=== PATIENT | female | born 1930 | race Caucasian/White ===

== ENCOUNTER 2016-08-12 15:24 | Emergency (ER) | payer OTHER, MEDICARE ==
--- NOTE | 2016-08-12 15:43 | EDPHY ---
H & P Stated Complaint: Loss of appitite x 1 week, MCPHERSON Time Seen by Provider: 08/12/16 15:43 - Personal History Current Tetanus/Diphtheria Vaccine: Yes Current Tetanus Diphtheria and Acellular Pertussis (TDAP): Yes - Medical/Surgical History Hx Asthma: No Hx Chronic Respiratory Disease: No Hx Diabetes: No Hx Cardiac Disease: No Hx Renal Disease: No Hx Cirrhosis: No Hx Alcoholism: No Hx HIV/AIDS: No Hx Splenectomy or Spleen Trauma: No Other PMH: L4, L5 injury, asthma - Social History Smoking Status: Never smoked Constitutional: Initial Vital Signs Temperature (C) 37.4 C 08/12/16 15:34 Heart Rate 90 08/12/16 15:34 Respiratory Rate 14 08/12/16 15:34 Blood Pressure 123/86 H 08/12/16 15:34 O2 Sat (%) 95 08/12/16 15:34 O2 Delivery Mode Room Air Allergies/Adverse Reactions: Penicillins Allergy (Intermediate, Verified 08/12/16 16:52) Rash Home Medications: Medication Instructions Recorded Allergy Medicine 08/12/16 Omeprazole 08/12/16 Venlafaxine Xr 08/12/16 Medical Decision Making ED Course/Re-evaluation: CHIEF COMPLAINT: No appetite HISTORY OF PRESENT ILLNESS: The patient is an 86 y/o female arriving with her daughter complaining of anorexic appetite for the last week. She initially had a "blistering" headache last weekend that improved with Advil. Since then, she' s felt generally weak and had no appetite; she's only been able to eat 4 small meals since symptom onset. She denies nausea, vomiting, abdominal pain, dysuria , or diarrhea. Her headache has recurred twice this week, but has been minor in severity. She endorses a mild cough with deep inspiration and feels dehydrated. She was evaluated by her MACHINIST HELPER on Monday, who found nothing significant on exam. She had a chest x-ray on Monday, but has not received those results yet. She denies any recent changes to her medications or lifestyle patterns and as not been ill or injured recently. REVIEW OF SYSTEMS: A 10 point review of systems was performed and is negative with the exception of the elements mentioned in the history of present illness. PHYSICAL EXAM: HR, BP, O2 Sat, RR. Temp noted General Appearance: Alert, well hydrated, appropriate, and non-toxic appearing. Head: Atraumatic without scalp tenderness or obvious injury Eyes: Pupils equal, round, reactive to light and accommodation, EOMI, no trauma , no injection. Ears: Clear bilaterally, no perforation, normal landmarks Nose: Atraumatic, no rhinorrhea, clear. Throat: There is no erythema or exudates, no lesions, normal tonsils, mucus membranes moist. Neck: Supple, 2+ carotid upstroke, nontender, no lymphadenopathy. Respiratory: No retractions, no distress, no wheezes, and no accessory muscle use. Lungs are clear to auscultation bilaterally. Cardiovascular: Regular rate and rhythm, no murmurs, rubs, or gallops. Bilateral carotid, radial, dorsalis pedis, and posterior tibial pulses intact. Good capillary refill all extremities. Gastrointestinal: Abdomen is soft, nontender, non-distended, no masses, no rebound, no guarding, no peritoneal signs. Musculoskeletal: Normal active ROM of all extremities, atraumatic. Neurological: Alert, appropriate, and interactive. The patient has normal DTRs and non-focal cranial nerves, motor, sensory, and cerebellar exam. Skin: No rashes, good turgor, no nodules on palpation. Past medical history: Depression, acid reflux, asthma Past surgical history: denies Family history: noncontributory Social history: , daughter at bedside. Nonsmoker. DIAGNOSTICS/PROCEDURES/CRITICAL CARE TIME: Study: Chest x-ray Indication: Cough, anorexia Results: Chest x-ray was obtained. The results of the study are 1. Mixed airways and interstitial pattern. Query viral pneumonitis. 2. Minimal cardiomegaly. No definite failure. The study was read by the radiologist, Dr. Haines. I viewed the images myself on the PACS system. DIFFERENTIAL DIAGNOSIS: The differential diagnosis for the patient's cough and anorexia included but was not limited to urinary tract infection, pneumonia, myocardial infarction, acute mountain sickness, high altitude pulmonary edema, congestive heart failure, and pulmonary embolus. MEDICAL DECISION MAKING: This is a relatively healthy 86 y/o female presenting with loss of appetite for the last week with associated intermittent headache and minor cough. She cannot identify any obvious precipitating factors for her symptoms. Her exam is unremarkable. She is afebrile and not hypoxemic. Plan for IV, labs, chest x-ray , and UA. Labs and chest x-ray are unremarkable. Her UA indicates a UTI. I've discussed findings with the patient. We discussed her mild non-allergic reaction to penicillins and decided Keflex is the best choice for her UTI. She will be discharged with a script for Keflex and referral to see her PCP in 3-4 days if not improved. She agrees with plan. Return precautions given. - Data Points Laboratory Results: Laboratory Results 08/12/16 16:45 08/12/16 16:45 08/12/16 08/12/16 08/12/16 17:00 16:45 16:45 WBC 8.52 10^3/uL 10^3/uL (3.80-9.50) RBC 4.05 10^6/uL L 10^6/uL (4.18-5.33) Hgb 13.4 g/dL g/dL (12.6-16.3) Hct 39.4 % % (38.0-47.0) MCV 97.3 fL fL (81.5-99.8) MCH 33.1 pg pg (27.9-34.1) MCHC 34.0 g/dL g/dL (32.4-36.7) RDW 12.0 % % (11.5-15.2) Plt Count 304 10^3/uL 10^3/uL (150-400) MPV 9.3 fL fL (8.7-11.7) Neut % (Auto) 70.3 % % (39.3-74.2) Lymph % (Auto) 19.2 % % (15.0-45.0) [place] % (Auto) 8.6 % % (4.5-13.0) Eos % (Auto) 0.9 % % (0.6-7.6) Baso % (Auto) 0.4 % % (0.3-1.7) Nucleat RBC Rel Count 0.0 % % (0.0-0.2) Absolute Neuts (auto) 5.99 10^3/uL 10^3/uL (1.70-6.50) Absolute Lymphs (auto) 1.64 10^3/uL 10^3/uL (1.00-3.00) Absolute Monos (auto) 0.73 10^3/uL 10^3/uL (0.30-0.80) Absolute Eos (auto) 0.08 10^3/uL 10^3/uL (0.03-0.40) Absolute Basos (auto) 0.03 10^3/uL 10^3/uL (0.02-0.10) Absolute Nucleated RBC 0.00 10^3/uL 10^3/uL (0-0.01) Immature Gran % 0.6 % % (0.0-1.1) Immature Gran # 0.05 10^3/uL 10^3/uL (0.00-0.10) Sodium 134 mEq/L mEq/L (134-144) Potassium 4.1 mEq/L mEq/L (3.5-5.2) Chloride 98 mEq/L mEq/L (97-110) Carbon Dioxide 22 mEq/l mEq/l (22-31) Anion Gap 14 mEq/L mEq/L (8-16) BUN 14 mg/dL mg/dL (7-23) Creatinine 1.0 mg/dL mg/dL (0.6-1.0) Estimated GFR 52 Glucose 96 mg/dL mg/dL (70-100) Calcium 9.2 mg/dL mg/dL (8.5-10.4) Total Bilirubin 0.9 mg/dL mg/dL (0.1-1.4) Conjugated Bilirubin 0.6 mg/dL H mg/dL (0.0-0.5) Unconjugated Bilirubin 0.3 mg/dL mg/dL (0.0-1.1) AST 29 IU/L IU/L (14-46) ALT 34 IU/L IU/L (9-52) Alkaline Phosphatase 95 IU/L IU/L (38-126) Total Protein 6.9 g/dL g/dL (6.3-8.2) Albumin 3.6 g/dL g/dL (3.5-5.0) Lipase 124.0 IU/L IU/L (23-300) Urine Color Pending Urine Appearance Pending Urine pH Pending Ur Specific [place] Pending Urine Protein Pending Urine Ketones Pending Urine Blood Pending Urine Nitrate Pending Urine Bilirubin Pending Urine Urobilinogen Pending Ur Leukocyte Esterase Pending Ur Culture Indicated? Pending Urine Glucose Pending Medications Given: Discontinued Medications Sodium Chloride (Ns) 1,000 mls @ 0 mls/hr IV ONCE ONE PRN Reason: Wide Open Stop: 08/12/16 15:57 Last Admin: 08/12/16 16:46 Dose: 1,000 mls Departure - Departure Disposition: Home, Routine, Self-Care Clinical Impression: Anorexia UTI (urinary tract infection) Qualifiers: Urinary tract infection type: site unspecified Hematuria presence: without hematuria Qualified Code(s): N39.0 - Urinary tract infection, site not specified Condition: Good Instructions: Urinary Tract Infection in Women (ED) Additional Instructions: 1. Take Keflex as prescribed. Be sure to complete your entire prescription even if you feel better. 2. Use Tylenol as directed on the packaging if needed for pain or fever. 3. Follow up with your primary care provider for symptoms not improved over the next 3-4 days. 4. Return to the ED for any worsening of condition. Referrals: FILIBERTO MAYES [Other] - As per Instructions Report Scribed for: Michael Mcgee Report Scribed by: Soraida Rob Date of Report: 08/12/16 Time of Report: 15:59
[2016-08-12] MEDS ORDERED: NS 1,000 ML IV ONE (15:56)
[2016-08-12 16:53] LABS: % IMMATURE GRANULYOCYTES 0.6 % (0.0-1.1); ABSOLUTE IMMATURE GRANULOCYTES 0.05 10^3/uL (0.00-0.10); ADD DIFF? NO; ADD MORPH? NO; ADD SCAN? NO; ATYPICAL LYMPHOCYTE FLAG 30 (0-99); FRAGMENT RBC FLAG 0 (0-99); HEMATOCRIT 39.4 % (38.0-47.0); HEMOGLOBIN 13.4 g/dL (12.6-16.3); LEFT SHIFT FLG 0 (0-99); LIPEMIA HEMOLYSIS FLAG 90 (0-99); MEAN CELL HEMOGLOBIN 33.1 pg (27.9-34.1); MEAN CELL VOLUME 97.3 fL (81.5-99.8); MEAN PLATELET VOLUME 9.3 fL (8.7-11.7); PLATELET CLUMPS FLAG 0 (0-99); PLATELET COUNT 304 10^3/uL (150-400); RED BLOOD CELL COUNT 4.05 10^6/uL (4.18-5.33)
[2016-08-12 17:13] LABS: ALANINE AMINOTRANSFERASE 34 IU/L (9-52); ALBUMIN 3.6 g/dL (3.5-5.0); ALKALINE PHOSPHATASE 95 IU/L (38-126); ANION GAP 14 mEq/L (8-16); ASPARTATE AMINOTRANSFERASE 29 IU/L (14-46); BILIRUBIN,TOTAL 0.9 mg/dL (0.1-1.4); BILIRUBIN-CONJUGATED 0.6 mg/dL (0.0-0.5); BILIRUBIN-UNCONJUGATED 0.3 mg/dL (0.0-1.1); CALCIUM 9.2 mg/dL (8.5-10.4); CARBON DIOXIDE 22 mEq/l (22-31); CHLORIDE 98 mEq/L (97-110); GLOMERULAR FILTRATION RATE 52; GLUCOSE 96 mg/dL (70-100); POTASSIUM 4.1 mEq/L (3.5-5.2); SODIUM 134 mEq/L (134-144); TOTAL PROTEIN 6.9 g/dL (6.3-8.2)
[2016-08-12 17:34] LABS: COLOR AMBER; LEUKOCYTE ESTERASE,URINE 2+ (NEGATIVE); NITRITE,URINE NEGATIVE (NEGATIVE)
[2016-08-12 17:41] LABS: BACTERIA TRACE /hpf (NONE SEEN); HYALINE CASTS 25-50 /lpf (0-1); MUCUS 3+ /lpf (NONE-1+); WBC,URINE 50-182 /hpf (0-3)
[2016-08-12 17:42] LABS: RBC,URINE NONE SEEN /hpf (0-3)
[2016-08-12] MEDS ORDERED: CEPHALEXIN 500 MG CAP PO ONE (17:49)
[2016-08-12 18:37] VITALS: BP 132/83; PULSE 86; RESP 17; TEMP 97.9; O2SAT 92
== END 2016-08-12 18:37 | disposition home or self-care (01) ==
DX: R63.0 Anorexia (principal); N39.0 Urinary tract infection, site not specified; J45.909 Unspecified asthma, uncomplicated; B96.89 Other specified bacterial agents as the cause of diseases classified elsewhere

== ENCOUNTER → 2016-12-30 | Outpatient (CLI) | payer OTHER, MEDICARE | LOC: FIMAGING 12:21 | PROVIDERS: ATTEND Internal Medicine | DX: M23.51 Chronic instability of knee, right knee (principal); M23.251 Derangement of posterior horn of lateral meniscus due to old tear or injury, right knee; M22.41 Chondromalacia patellae, right knee; M25.461 Effusion, right knee; M71.21 Synovial cyst of popliteal space [Baker], right knee; M25.561 Pain in right knee; R93.6 Abnormal findings on diagnostic imaging of limbs | CPT/HCPCS: G0202 ==

== ENCOUNTER → 2017-02-15 | Outpatient (CLI) | payer OTHER, MEDICARE | LOC: FIMAGING 13:04 | PROVIDERS: ATTEND Internal Medicine | DX: Z13.820 Encounter for screening for osteoporosis (principal); M85.80 Other specified disorders of bone density and structure, unspecified site; M51.36 Other intervertebral disc degeneration, lumbar region; M46.96 Unspecified inflammatory spondylopathy, lumbar region; Z78.0 Asymptomatic menopausal state ==

== ENCOUNTER 2017-03-20 06:02 | Day surgery (SDC) | payer OTHER, MEDICARE ==
[2017-03-20] MEDS ORDERED: CLINDAMYCIN 900 MG/DEXTROSE 50 ML IV ONE (06:10)
[2017-03-20] MEDS ORDERED: LR 1,000 ML IV ONE (06:12)
[2017-03-20] MEDS ORDERED: LIDOCAINE 1% 2 ML INJ ID PRN (06:12)
[2017-03-20] MEDS ORDERED: CLINDAMYCIN 900 MG/DEXTROSE/50 ML BAG IV ONE (06:24)
--- NOTE | 2017-03-20 06:40 | PDHPUP ---
History & Physical Update H&P update statement: This history and physical update is based on an assessment of the patient which was completed after admission or registration (within 24 hours), but prior to the surgery/procedure.
--- NOTE | 2017-03-20 07:06 | PDANEPAE ---
ANE Past Medical History - Cardiovascular History Hx Hypertension: No Hx Arrhythmias: No Hx Chest Pain: No Hx Coronary Artery / Peripheral Vascular Disease: No Hx CHF / Valvular Disease: No Hx Palpitations: No - Pulmonary History Hx COPD: No Hx Asthma/Reactive Airway Disease: No Hx Recent Upper Respiratory Infection: No Hx Oxygen in Use at Home: No Hx Sleep Apnea: No Sleep Apnea Screening Result - Last Documented: Negative - Neurologic History Hx Cerebrovascular Accident: No Hx Seizures: No Hx Dementia: No - Endocrine History Hx Diabetes: No - Renal History Hx Renal Disorders: No - Liver History Hx Hepatic Disorders: No - Neurological & Psychiatric Hx Hx Neurological and Psychiatric Disorders: No - Cancer History Hx Cancer: No - Congenital Disorder History Hx Congenital Disorders: No - GI History Hx Gastrointestinal Disorders: Yes Gastrointestinal History Comment: GERD,REFLUX - Other Health History Other Health History: NONE - Chronic Pain History Chronic Pain: Yes (GENERAL ARTHITIC JOINTS) - Surgical History Prior Surgeries: 2015 TRIGGER FINGER. 2015 EYELID SURGERY ANE Review of Systems Review of Systems: - Exercise capacity METS (RN): 4 METS ANE Patient History - Allergies Allergies/Adverse Reactions: Penicillins Allergy (Intermediate, Verified 08/12/16 16:52) Rash procaine Allergy (Verified 03/20/17 06:27) NOVACAINE Allergy (Severe, Uncoded 03/10/17 11:11) RACING IRREGULAR HEART BEAT - Home Medications Home Medications: Allergy Medicine 08/12/16 [Last Taken 03/19/17 08:00] Omeprazole 08/12/16 [Last Taken 03/20/17 04:30] Venlafaxine Xr 08/12/16 [Last Taken 03/20/17 04:30] - NPO status NPO Since - Liquids (Date): 03/19/17 NPO Since - Liquids (Time): 19:00 NPO Since - Solids (Date): 03/19/17 NPO Since - Solids (Time): 17:00 - Smoking Hx Smoking Status: Never smoked - Family Anes Hx Family Hx Anesthesia Complications: NONE ANE Labs/Vital Signs - Vital Signs Blood Pressure: 156/85 Heart Rate: 82 Respiratory Rate: 16 O2 Sat (%): 93 Height: 162.56 cm Weight: 72.575 kg ANE Physical Exam - Airway Mallampati Score: Class 2 - ASA Status ASA Status: II ANE Anesthesia Plan Anesthesia Plan: GA w LMA
[2017-03-20] MEDS ORDERED: BUPIVACAINE/EPI 0.5% 30 ML SDV ONE (07:08)
[2017-03-20] MEDS ORDERED: MIDAZOLAM 2 MG/2 ML VIAL ONE (07:10)
[2017-03-20] MEDS ORDERED: fentaNYL 100 MCG/2 ML INJ ONE (07:11)
[2017-03-20] MEDS ORDERED: METOCLOPRAMIDE 10 MG/2 ML VIAL ONE (07:12)
[2017-03-20] MEDS ORDERED: ONDANSETRON 4 MG/2 ML VIAL ONE (07:12)
[2017-03-20] MEDS ORDERED: LIDOCAINE 2% JELLY 5 ML TUBE ONE (07:12)
[2017-03-20] MEDS ORDERED: PROPOFOL 200 MG/20 ML VIAL ONE (07:12)
[2017-03-20] MEDS ORDERED: NALOXONE HCL 0.4 MG/ML INJ IVP PRN (07:59)
[2017-03-20] MEDS ORDERED: PROMETHAZINE HCL 25 MG/ML INJ IVP PRN (07:59)
[2017-03-20] MEDS ORDERED: LR 500 ML IV PRN (07:59)
[2017-03-20] MEDS ORDERED: fentaNYL 100 MCG/2 ML INJ IVP PRN (07:59)
--- NOTE | 2017-03-20 08:00 | POSTANESTH ---
Post Anesthetic Evaluation Cardiovascular Status: Normal, Stable Respiratory Status: Normal, Stable Level of Consciousness/Mental Status: Can Participate in Eval Pain Control: Adequate, Prn Tx Ordered Nausea/Vomiting Control: Adequate, Prn Tx Ordered Complications Possibly Related to Anesthesia: None Noted
[2017-03-20 08:56] VITALS: RESP 16; TEMP 97
[2017-03-20 09:11] VITALS: BP 110/49; PULSE 71; O2SAT 94
== END 2017-03-20 09:14 | disposition short-term general hospital (02) ==
LOC: FSGY 06:02
PROVIDERS: ATTEND Orthopaedic Surgery
PROC: 0SBC4ZZ Excision of Right Knee Joint, Percutaneous Endoscopic Approach (ICD-10-PCS; principal; 2017-03-20 07:15)
PROC: 0MQN4ZZ Repair Right Knee Bursa and Ligament, Percutaneous Endoscopic Approach (ICD-10-PCS; principal; 2017-03-20 07:15)
DX: S83.281A Other tear of lateral meniscus, current injury, right knee, initial encounter (principal); W18.43XA Slipping, tripping and stumbling without falling due to stepping from one level to another, initial encounter; J45.909 Unspecified asthma, uncomplicated; F32.9 Major depressive disorder, single episode, unspecified; M85.80 Other specified disorders of bone density and structure, unspecified site; Z80.3 Family history of malignant neoplasm of breast
CPT/HCPCS: J0171; J2250; J2405; J2704; J2765; J3010

== ENCOUNTER → 2017-06-05 | Outpatient (CLI) | payer OTHER, MEDICARE | LOC: BMCIMAGING 10:19 | PROVIDERS: ATTEND Internal Medicine | DX: J40 Bronchitis, not specified as acute or chronic (principal); I51.7 Cardiomegaly; Q25.46 Tortuous aortic arch ==

== ENCOUNTER 2017-06-07 16:23 | Inpatient (IN) | payer OTHER, MEDICARE ==
--- NOTE | 2017-06-07 16:39 | EDPHY ---
H & P Stated Complaint: congestion Time Seen by Provider: 06/07/17 16:38 HPI/ROS: CHIEF COMPLAINT: Chronic congestion cough weakness HISTORY OF PRESENT ILLNESS: The patient has had a 1 month history of a chronic intermittent cough, congestion and weakness. She reports subjective fevers, weight loss nausea and malaise. The patient was initially diagnosed with a possible urinary tract infection and treated with Keflex however the culture demonstrated only a contaminant. She was subsequently started on doxycycline 2 weeks ago. The patient did have a chest x-ray performed 2 days ago which demonstrated no evidence of pneumonia. She did have evidence of bronchitis. The patient had a negative flu test by her report several weeks ago. The patient denies any abdominal pain, vomiting or diarrhea. The patient complains of mild dyspnea and intractable cough. She has not been using an albuterol inhaler. REVIEW OF SYSTEMS: A comprehensive 10 point review of systems is otherwise negative aside from elements mentioned in the history of present illness. Source: Patient Exam Limitations: No limitations - Personal History Current Tetanus/Diphtheria Vaccine: Unsure Current Tetanus Diphtheria and Acellular Pertussis (TDAP): Unsure - Medical/Surgical History Hx Asthma: Yes Hx Chronic Respiratory Disease: No Hx Diabetes: No Hx Cardiac Disease: No Hx Renal Disease: No Hx Cirrhosis: No Hx Alcoholism: No Hx HIV/AIDS: No Hx Splenectomy or Spleen Trauma: No Other PMH: L4, L5 injury, asthma, R knee surgery, tonsilectomy, tubal ligation - Social History Smoking Status: Never smoked - Physical Exam Exam: General Appearance: Alert, no distress Eyes: Pupils equal and round no pallor or injection ENT, Mouth: Mucous membranes moist Respiratory: Rhonchorous breath sounds, no tachypnea Cardiovascular: Regular rate and rhythm Gastrointestinal: Abdomen is soft and nontender, no masses, bowel sounds normal Neurological: A&O, normal motor function, normal sensory exam, normal cranial nerves Skin: Warm and dry, no rashes Musculoskeletal: Neck is supple nontender Extremities: symmetrical, full range of motion Constitutional: Initial Vital Signs Temperature (C) 36.7 C 06/07/17 16:29 Heart Rate 106 H 06/07/17 16:29 Respiratory Rate 16 06/07/17 16:29 Blood Pressure 134/79 H 06/07/17 16:29 O2 Sat (%) 86 L 06/07/17 16:29 O2 Delivery Mode Room Air Allergies/Adverse Reactions: Penicillins Allergy (Intermediate, Verified 06/07/17 16:28) Rash procaine Allergy (Verified 06/07/17 16:28) NOVACAINE Allergy (Severe, Uncoded 06/07/17 16:28) RACING IRREGULAR HEART BEAT Home Medications: Medication Instructions Recorded Allergy Medicine 08/12/16 Omeprazole 08/12/16 Venlafaxine Xr 08/12/16 Albuterol [Ventolin Hfa Inhaler] 2 puffs IH QID PRN #1 mdi 06/07/17 Doxycycline Monohydrate 06/07/17 Mucinex 06/07/17 predniSONE [prednisone 20mg (RX)] 3 tab PO DAILY #15 tab 06/07/17 Medical Decision Making ED Course/Re-evaluation: The patient presents to the ED with an ongoing respiratory illness. She is currently on doxycycline. She had a chest x-ray performed 2 days ago which demonstrated no evidence of pneumonia. She has had a negative rapid flu test by her report. The patient was noted to be hypoxemic in the emergency department. She received prednisone, a DuoNeb and albuterol nebulizer. Her laboratory studies are reassuring. A respiratory pathogen panel has been ordered. I re-evaluated the patient at 6:30 p.m.. She ambulated and has an oxygen saturation of 80%. She corrects with 2 L/min of nasal cannula oxygen. The patient will require admission to the hospital in a setting of her hypoxemia. Consultation is made with Dr. Maravilla from the hospitalist service. I have ordered respiratory pathogen panel. The patient received an additional albuterol nebulizer. Differential Diagnosis: Differential diagnosis considered includes asthma, bronchitis, pneumonia, influenza, heart failure - Data Points Laboratory Results: Laboratory Results 06/07/17 17:05 06/07/17 17:05 06/07/17 06/07/17 17:05 17:05 WBC 10.84 10^3/uL H 10^3/uL (3.80-9.50) RBC 4.34 10^6/uL 10^6/uL (4.18-5.33) Hgb 14.0 g/dL g/dL (12.6-16.3) Hct 40.6 % % (38.0-47.0) MCV 93.5 fL fL (81.5-99.8) MCH 32.3 pg pg (27.9-34.1) MCHC 34.5 g/dL g/dL (32.4-36.7) RDW 12.6 % % (11.5-15.2) Plt Count 302 10^3/uL 10^3/uL (150-400) MPV 9.3 fL fL (8.7-11.7) Neut % (Auto) 79.8 % H % (39.3-74.2) Lymph % (Auto) 11.1 % L % (15.0-45.0) [place] % (Auto) 7.7 % % (4.5-13.0) Eos % (Auto) 0.4 % L % (0.6-7.6) Baso % (Auto) 0.4 % % (0.3-1.7) Nucleat RBC Rel Count 0.0 % % (0.0-0.2) Absolute Neuts (auto) 8.65 10^3/uL H 10^3/uL (1.70-6.50) Absolute Lymphs (auto) 1.20 10^3/uL 10^3/uL (1.00-3.00) Absolute Monos (auto) 0.84 10^3/uL H 10^3/uL (0.30-0.80) Absolute Eos (auto) 0.04 10^3/uL 10^3/uL (0.03-0.40) Absolute Basos (auto) 0.04 10^3/uL 10^3/uL (0.02-0.10) Absolute Nucleated RBC 0.00 10^3/uL 10^3/uL (0-0.01) Immature Gran % 0.6 % % (0.0-1.1) Immature Gran # 0.07 10^3/uL 10^3/uL (0.00-0.10) Sodium 132 mEq/L L mEq/L (135-145) Potassium 4.3 mEq/L mEq/L (3.5-5.2) Chloride 95 mEq/L L mEq/L (97-110) Carbon Dioxide 23 mEq/l mEq/l (22-31) Anion Gap 14 mEq/L mEq/L (8-16) BUN 15 mg/dL mg/dL (7-23) Creatinine 0.9 mg/dL mg/dL (0.6-1.0) Estimated GFR 59 Glucose 110 mg/dL H mg/dL (70-100) Calcium 9.1 mg/dL mg/dL (8.5-10.4) Specimen Hemolysis 114 Medications Given: Discontinued Medications Albuterol/Ipratropium (Duoneb) 3 ml IH EDNOW ONE Stop: 06/07/17 17:06 Last Admin: 06/07/17 17:16 Dose: 3 ml Prednisone (Prednisone) 60 mg PO EDNOW ONE Stop: 06/07/17 17:56 Last Admin: 06/07/17 18:03 Dose: 60 mg Departure - Departure Disposition: [facility] Inpatient Acute Clinical Impression: Bronchitis, Hypoxemia Condition: Good
[2017-06-07] MEDS ORDERED: IPRATROPIUM/ALBUTEROL 3 ML DEYVIAL IH ONE (17:05)
[2017-06-07 17:21] LABS: PLATELET COUNT 302 10^3/uL (150-400)
[2017-06-07] MEDS ORDERED: predniSONE 20 MG TAB PO ONE (17:55)
[2017-06-07] MEDS ORDERED: ONDANSETRON DISINTEGRATING 4 MG TAB PO PRN (18:44)
[2017-06-07] MEDS ORDERED: ONDANSETRON 4 MG/2 ML VIAL IVP PRN (18:44)
[2017-06-07] MEDS ORDERED: ACETAMINOPHEN 325 MG TAB PO PRN (18:44)
[2017-06-07] MEDS ORDERED: ALBUTEROL 3 ML DEYVIAL IH ONE (18:47)
[2017-06-07] MEDS ORDERED: IPRATROPIUM/ALBUTEROL 3 ML DEYVIAL IH PRN (20:25)
[2017-06-07] MEDS ORDERED: BENZONATATE 100 MG CAP PO PRN (20:25)
[2017-06-07] MEDS ORDERED: guaiFENesin 200 MG TAB PO PRN (20:26)
[2017-06-07] MEDS ORDERED: LR 1,000 ML IV SCH (20:30)
--- NOTE | 2017-06-07 21:12 | GHP ---
[f rep st] HISTORY AND PHYSICAL DATE OF ADMISSION: 06/07/2017 CHIEF COMPLAINT: Chronic cough, weakness. HISTORY OF PRESENT ILLNESS: An 87-year-old female with history of GERD, depression, who presented wi th weakness. She reports an intermittent cough and congestion for the past month. She initially not iced symptoms a month ago after returning from [place] visiting her son. She developed a headache an d a temperature of a 101 on May 11. She was very fatigued and had a decreased appetite. She contreras d intermittent diarrhea at that time. She saw her PCP, was provided Keflex for possible UTI. Cultur e on 05/17/2017 was negative. She was still having persistent symptoms, which were dry cough and madisyn e nasal congestion and thus was dosed with a 2nd round of antibiotics of doxycycline. She had a ches t x-ray 06/05/2017 that was negative for effusion or pneumonia. It did show some bronchitis. She re ports a negative flu several weeks ago. No ill contacts. She says she cannot take deep breaths mariana use it is hard to breathe. This is worsened with walking. Denies PND, pillow orthopnea, or lower ex tremity swelling. She did have a meniscal tear repair in December, but was walking the next day, not immobile. REVIEW OF SYSTEMS: I completed a 10-point review of systems, negative except as noted in HPI. PAST MEDICAL HISTORY: GERD, depression. SURGERIES: 1. Meniscectomy, chondroplasty in December 2016. 2. Trigger finger surgery. SOCIAL HISTORY: Lives at [place]. No tobacco or illicits. Occasional alcohol. FAMILY HISTORY: A sister with breast cancer. Brother with bladder cancer. Daughter with small cell carcinoma. ALLERGIES: Penicillin, procaine, novocaine. HOME MEDICATIONS: Vitamin B12, multivitamin, vitamin D3, Effexor 75 mg twice daily, omeprazole 40 mg daily, guaifenesin, doxycycline 100 mg twice daily, Zyrtec. PHYSICAL EXAMINATION: VITAL SIGNS: Temperature 36.8, blood pressure 132/82. She is 86% on room air , 90 on 3 L. GENERAL: Tired-appearing. HEENT: PERRLA. Dry mucous membranes. CARDIOVASCULAR: Ta woo but regular. No murmurs. Trace ankle edema. LUNGS: Diffuse crackles throughout lung gerber bi laterally. ABDOMEN: Soft, nontender, nondistended. Positive bowel sounds. : No Pang. MUSCULO SKELETAL: 5/5 upper lower extremity strength. NEURO: 2 through 12 intact. PSYCH: Alert and orien noemi x3. LABS: WBC 10, hemoglobin 14, hematocrit 40, platelets 302. Sodium 132, potassium 4.3, chloride 95, anion gap 14, creatinine 0.9, glucose 110, calcium 9.1. Chest x-ray personally reviewed by me on 12/2017, no evidence of pneumonia or effusion. ASSESSMENT AND PLAN: 1. Acute hypoxic respiratory failure: The patient has been treated with 2 rounds of antibiotics. S he is currently afebrile. There is no evidence of pneumonia on x-ray. She does not have any underly ing lung disease or history of tobacco. We will rule out other etiologies by checking a troponin, BN P. Check a CT scan given persistence. 2. Hypovolemic hyponatremia: Gentle IV fluids. She is dry on exam. 3. Tachycardia: Again, could be dehydration versus pulmonary embolus, though the suspicion is low. I will check a D-dimer, if positive we will CT scan. 4. Gastroesophageal reflux disease: Continue PPI. 5. Depression: Effexor. DIET: Regular. DEEP VENOUS THROMBOSIS PROPHYLAXIS: Lovenox. DISPOSITION: Patient warrants observation admission given fatigue, hypoxia requiring IV fluids and f urther imaging. /[id number]/MODL
[2017-06-07] MEDS ORDERED: CETIRIZINE 10 MG TAB PO PRN (21:57)
[2017-06-08] MEDS: CYANO/VITAMIN B12 1000 MCG TAB PO SCH (08:00)
[2017-06-08] MEDS: PANTOPRAZOLE SODIUM 40 MG TAB PO SCH (08:01)
[2017-06-08] MEDS: MULTIVITAMINS 1 EACH TAB PO SCH (08:01)
[2017-06-08] MEDS: ENOXAPARIN 40 MG/0.4 ML SYR SC SCH (08:01)
[2017-06-08] MEDS: CHOLECALCIFEROL VIT D3 2,000 UNITS TAB/CAP PO SCH (08:01)
[2017-06-08] MEDS: VENLAFAXINE XR 75 MG CAP PO SCH ×2 (08:01→20:47)
--- NOTE | 2017-06-08 11:37 | HOSPPROG ---
Hospitalist Progress Note Assessment/Plan: Patient is an 87-year-old female with a history of GERD, depression who presented the emergency room with a chronic cough and weakness. Today is my 1st encounter with the patient. Chart reviewed. 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 Objective: Vital Signs Temp Pulse Resp BP Pulse Ox 36.6 C 78 16 122/61 H 92 06/08/17 08:00 06/08/17 08:00 06/08/17 08:00 06/08/17 08:00 06/08/17 08:00 - Physical Exam Constitutional: no apparent distress, appears nourished, not in pain Eyes: PERRL Ears, Nose, Mouth, Throat: hearing normal Cardiovascular: regular rate and rhythym Respiratory: no respiratory distress, clear to auscultation Gastrointestinal: normoactive bowel sounds Skin: warm Musculoskeletal: full muscle strength Neurologic: AAOx3 Psychiatric: interacting appropriately ICD10 Worksheet Patient Problems: Problems Problem Status Onset Bronchitis Acute Hypoxemia Acute
--- NOTE | 2017-06-08 12:22 | CPEKG ---
Heart Rate: 94 RR Interval: 638 P-R Interval: 168 QRSD Interval: 86 QT Interval: 348 QTC Interval: 436 P Nelson: 47 QRS Nelson: -36 T Wave Nelson: 32 EKG Severity - OTHERWISE NORMAL ECG - EKG Impression: SINUS RHYTHM EKG Impression: LEFT AXIS DEVIATION Electronically Signed By: Anand Kerns 08-Jun-2017 15:22:52
[2017-06-08] MEDS: predniSONE 20 MG TAB PO SCH (12:29)
--- NOTE | 2017-06-08 15:25 | ASMTCMCOM ---
CM Note CM Note Notes: Per RN, pt lives at [place] and takes care of . Refused to work with PT today, CM w/f up tomorrow for dc needs. Date Signed: 06/08/2017 03:25 PM Electronically Signed By:Jenifer Kruse RN
--- NOTE | 2017-06-08 16:09 | PDMN ---
Medical Necessity Medical necessity: IP from time of admission; no obs hrs; los>2mn for acute hypoxemic resp failure with O2 sat 85 on RA, elevated D dimer; requires further monitoring , supplemental O2; comorbid GERD, depression, advanced age; per order and progress note 06/08/17
[2017-06-09 04:28] VITALS: RESP 16
[2017-06-09] MEDS: ENOXAPARIN 40 MG/0.4 ML SYR SC SCH (08:29)
[2017-06-09] MEDS: VENLAFAXINE XR 75 MG CAP PO SCH (08:30)
[2017-06-09] MEDS: MULTIVITAMINS 1 EACH TAB PO SCH (08:30)
[2017-06-09] MEDS: CYANO/VITAMIN B12 1000 MCG TAB PO SCH (08:30)
[2017-06-09] MEDS: PANTOPRAZOLE SODIUM 40 MG TAB PO SCH (08:30)
[2017-06-09] MEDS: CHOLECALCIFEROL VIT D3 2,000 UNITS TAB/CAP PO SCH (08:30)
[2017-06-09] MEDS: predniSONE 20 MG TAB PO SCH (08:30)
[2017-06-09 11:41] VITALS: BP 130/61; PULSE 84; TEMP 98; O2SAT 91
--- NOTE | 2017-06-09 12:00 | HOSPPROG ---
Hospitalist Progress Note Assessment/Plan: Patient is an 87-year-old female with a history of GERD, depression who presented the emergency room with a chronic cough and weakness. 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 Objective: Vital Signs Temp Pulse Resp BP Pulse Ox 36.6 C 84 16 130/61 H 91 L 06/09/17 11:36 06/09/17 11:36 06/09/17 11:36 06/09/17 11:36 06/09/17 11:36 Laboratory Results 06/09/17 05:00 - Physical Exam Constitutional: no apparent distress, appears nourished, not in pain Eyes: PERRL Ears, Nose, Mouth, Throat: hearing normal Cardiovascular: regular rate and rhythym Respiratory: no respiratory distress, no rales or rhonchi, clear to auscultation Gastrointestinal: normoactive bowel sounds Skin: warm, normal color Musculoskeletal: generalized weakness Neurologic: AAOx3 Psychiatric: interacting appropriately ICD10 Worksheet Patient Problems: Problems Problem Status Onset Bronchitis Acute Hypoxemia Acute
--- NOTE | 2017-06-09 17:38 | ASDISCHSUM ---
Discharge Information Plan Status:Home with No Needs Medically Cleared to Leave: Discharge Date:06/09/2017 02:35 PM CM D/C Disposition: ADT D/C Disposition:Home, Routine, Self-Care Projected Discharge Date:06/09/2017 02:35 PM Transportation at D/C: Discharge Delay Reason: Follow-Up Date:06/09/2017 02:35 PM Discharge Slot: Final Diagnosis: Placement Information Patient Contact Information Contact Name:JL Relationship:Daughter Address: Work Phone: City:[place] Alternate Phone: State/[place] Code:[place] Email: Financial Information Financial Class: Primary Plan Desc:MEDICARE INPATIENT Primary Plan Number:[id number] Secondary Plan Desc:[employer]ARP/MDR SUPPLEMENT Secondary Plan Number:[id number] Assessment Information [facility] CM Progress Note CM Note CM Note Notes: Per RN, pt lives at [place] and takes care of . Refused to work with PT today, CM w/f up tomorrow for dc needs. Date Signed: 06/08/2017 03:25 PM Electronically Signed By:Jenifer Kruse RN Case Management Discharge Plan Note Case Management Discharge Discharge Order Complete? Answers: No Transportation Arranged Answers: Family/Friends Discharge Comments Notes: Spoke w/pt, declines the need for home care, states lives at [place] and there is assistance if she needs it, as well RNs who take care of her . CM available for any changes. DC Plan: Home independent Date Signed: 06/09/2017 12:57 PM Electronically Signed By:Jenifer Kruse RN Intervention Information Intervention Type:*GAINES-Signed Date of Service:06/08/2017 02:13 PM Patient Type:Observation Staff Member:Bee Carranza Hours: Discipline: Severity: Comment:
--- NOTE | 2017-06-09 18:14 | GDS ---
[f rep st] DISCHARGE SUMMARY DISCHARGE DIAGNOSES: 1. Acute hypoxemic respiratory failure. 2. Cough. 3. 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 4. Elevated D-dimer. 5. Gastroesophageal reflux disease. 6. Depression. BRIEF HISTORY: The patient is an 87-year-old female with history of GERD, depression, who presented to the emergency room with a chronic cough and weakness. She had a respiratory panel performed that showed no organism detected. Blood cultures were checked, which were negative. She had a CT of her chest performed, which showed chronic bronchitis. Negative for acute pneumonia. She has some element of mild interstitial fibrosis. 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 She was started on prednisone with good results. Today, her cough is much better and she is on room air. HOSPITAL COURSE PER PROBLEM: 1. Acute hypoxemic respiratory failure. I suspect this is mainly from bronchitis. She has improved with steroids. I have given her the name of a narcotics detective to follow up with. 2. Cough. She said this has been ongoing. The prednisone has helped. She will get a prescription for Tessalon Perles. 3. 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 Will have her follow up with her primary care doctor. 4. Elevated D-dimer. She had a CT of the chest, but not an angiogram. She is not tachycardic and not hypoxic. Her PE clinical probability is likely low. At this time, will not pursue any further imaging. 5. GERD. PPI. 6. Depression, stable on her medications. DISCHARGE CONDITION: Stable. Blood pressure is 130/61, heart rate is 84, respiratory rate is 16, O2 saturations on room air are 91%, temperature 36.6 Celsius. MEDICATIONS AT DISCHARGE: Please see the EMR. DISCHARGE INSTRUCTIONS: 1. Further followup with her primary care provider. 2. Take the prednisone as instructed. 3. If she develops fever, chills, shortness of breath, to return to the ER. 4. Follow up with Pulmonology. TIME SPENT: Greater than 30 minutes discharging and coordinating care. /[id number]/MODL MTDD
== END 2017-06-09 14:35 | disposition home or self-care (01) | DRG 202 ==
LOC: INTOOBSV 18:29 → F3E 19:48 → OBSVTOIN 06-08 15:12
PROVIDERS: ADMIT Internal Medicine; ATTEND Internal Medicine
DX: J40 Bronchitis, not specified as acute or chronic (principal); J96.01 Acute respiratory failure with hypoxia; E87.1 Hypo-osmolality and hyponatremia; J84.10 Pulmonary fibrosis, unspecified; K21.9 Gastro-esophageal reflux disease without esophagitis
CPT/HCPCS: 97161-GP; G8978-GP-CI; G8979-GP-CI; G8980-GP-CI; J1650; J7512; J7613

== ENCOUNTER → 2017-09-21 | Outpatient (CLI) | payer OTHER, MEDICARE | LOC: BHFA 10:00 | PROVIDERS: ATTEND Internal Medicine Cardiovascular Disease | DX: R06.00 Dyspnea, unspecified (principal) ==

== ENCOUNTER → 2017-09-21 | Outpatient (CLI) | payer OTHER, MEDICARE | LOC: FIMAGING 11:26 | PROVIDERS: ATTEND Internal Medicine | DX: R05 Cough (principal); R06.2 Wheezing; R09.81 Nasal congestion ==

== ENCOUNTER → 2017-10-06 | Outpatient (CLI) | payer OTHER, MEDICARE | LOC: BHFA 14:00 | PROVIDERS: ATTEND Internal Medicine Cardiovascular Disease | DX: R06.02 Shortness of breath (principal) ==

== ENCOUNTER 2017-10-18 14:59 | Inpatient (IN) | payer OTHER, MEDICARE ==
[2017-10-18] MEDS ORDERED: NS 500 ML IV ONE (15:30)
--- NOTE | 2017-10-18 15:30 | EDPHY ---
H & P Stated Complaint: cough/fever Time Seen by Provider: 10/18/17 15:00 HPI/ROS: CHIEF COMPLAINT: Cough, fever HISTORY OF PRESENT ILLNESS: 87-year-old female presents with cough and fever. Onset of sore throat, runny nose and cough 4 days ago. The cough is productive of yellowish phlegm and is associated with shortness of breath. Onset of fever yesterday; no antipyretics today. She feels dizzy and has generalized weakness. She only drank a small amount of water today and did not take her usual medications. She has home oxygen and uses it only as needed. She has not used her oxygen recently. REVIEW OF SYSTEMS: complete 10 point ROS negative except at noted in the HPI Exam Limitations: No limitations - Personal History Current Tetanus/Diphtheria Vaccine: Unsure - Medical/Surgical History Hx Asthma: Yes Hx Chronic Respiratory Disease: No Hx Diabetes: No Hx Cardiac Disease: No Hx Renal Disease: No Hx Cirrhosis: No Hx Alcoholism: No Hx HIV/AIDS: No Hx Splenectomy or Spleen Trauma: No Other PMH: L4, L5 injury, asthma, R knee surgery, tonsilectomy, tubal ligation - Social History Smoking Status: Never smoked - Physical Exam Exam: General Appearance: Alert, pleasant, nontoxic Eyes: Pupils equal and round, no conjunctival pallor or injection ENT, Mouth: Mucous membranes dry Neck: Normal inspection Respiratory: Scattered inspiratory and expiratory wheezing Cardiovascular: Regular tachycardia Gastrointestinal: Abdomen is soft and nontender Neurological: A&O, nonfocal, normal gait Skin: Warm and dry Extremities: Nontender, no pedal edema Psychiatric: Mood and affect normal Constitutional: Initial Vital Signs Temperature (C) 37.5 C 10/18/17 15:03 Heart Rate 112 H 10/18/17 15:03 Respiratory Rate 20 10/18/17 15:03 Blood Pressure 135/81 H 10/18/17 15:03 O2 Sat (%) 90 L 10/18/17 15:03 O2 Delivery Mode Room Air Allergies/Adverse Reactions: Penicillins Allergy (Intermediate, Verified 10/18/17 14:59) Rash procaine Allergy (Intermediate, Verified 10/18/17 17:40) Itching NOVACAINE Allergy (Severe, Uncoded 10/18/17 17:40) Itching Home Medications: Medication Instructions Recorded Venlafaxine Xr [Effexor Xr 75MG 75 mg PO BID 06/07/17 (*)] Albuterol [Proventil Neb] 3 ml IH BID 10/18/17 Ascorbic Acid [Vitamin C 500 mg 1,000 mg PO DAILY 10/18/17 (*)] Cholecalciferol Vit D3 [Vitamin D3 1,000 units PO DAILY 10/18/17 (*)] Cyanocobalamin [Vitamin B12 (*)] 1,000 mcg PO DAILY 10/18/17 Fluticasone Nasal [Flonase Nasal 2 sprays NASAL DAILY PRN 10/18/17 [place] (RX)] Multivitamins [Multivitamin (*)] 1 each PO DAILY 10/18/17 Omeprazole 40 mg PO DAILY 10/18/17 guaiFENesin [Mucinex 600 MG (*)] 600 mg PO DAILY 10/18/17 Medical Decision Making - Diagnostics EKG Interpretation: EKG interpreted by me reveals sinus tachycardia, rate 105, no ST or T segment changes. Interpretation: Borderline EKG Imaging Results: Imaging Impressions Chest X-Ray 10/18/17 15:05 Impression: 1. Peribronchial cuffing in the perihilar region bilaterally. Findings are nonspecific but can be seen with bronchitis, viral process, or reactive airways disease. 2. Interstitial infiltrate/pneumonia suspected right lower lobe. Imaging: I viewed and interpreted images myself ED Course/Re-evaluation: This patient presents with cough, wheezing and fever, concerning for pneumonia. She meets SIRS criteria with tachycardia and tachypnea. Lactate is normal. IV normal saline 500 mL given. Albuterol neb and Solu-Medrol IV given. Old medical record reviewed. She was admitted in May 2017 for fever and shortness of breath. CT scan of the chest revealed no evidence of pneumonia. She was treated with steroids and gradually improved. No prior dx of underlying lung disease. Chest x-ray reveals a right lower lobe infiltrate. Results discussed with the patient and her daughter. Blood cultures were drawn and Rocephin and Zithromax IV given. Urinalysis reveals a possible urinary tract infection. The patient does not have urinary symptoms. Urine cx sent. The hospitalist service was consulted for admission. Differential Diagnosis: Differential diagnosis includes though it is not limited to pneumonia, pneumothorax, pulmonary embolism, aortic dissection, pericarditis, acute coronary syndrome. - Data Points Laboratory Results: Laboratory Results 10/18/17 15:30 10/18/17 15:30 10/18/17 10/18/17 10/18/17 15:45 15:30 15:30 WBC RBC Hgb Hct MCV MCH MCHC RDW Plt Count MPV Neut % (Auto) Lymph % (Auto) [place] % (Auto) Eos % (Auto) Baso % (Auto) Nucleat RBC Rel Count Absolute Neuts (auto) Absolute Lymphs (auto) Absolute Monos (auto) Absolute Eos (auto) Absolute Basos (auto) Absolute Nucleated RBC Immature Gran % Immature Gran # PT 13.0 SEC SEC (12.0-15.0) INR 0.96 (0.83-1.16) APTT 30.7 SEC SEC (23.0-38.0) VBG Lactic Acid Sodium 137 mEq/L mEq/L (135-145) Potassium 4.4 mEq/L mEq/L (3.3-5.0) Chloride 100 mEq/L mEq/L (97-110) Carbon Dioxide 23 mEq/l mEq/l (22-31) Anion Gap 14 mEq/L mEq/L (8-16) BUN 10 mg/dL mg/dL (7-23) Creatinine 0.9 mg/dL mg/dL (0.6-1.0) Estimated GFR 59 Glucose 105 mg/dL H mg/dL (70-100) Calcium 9.1 mg/dL mg/dL (8.5-10.4) Total Bilirubin 0.6 mg/dL mg/dL (0.1-1.4) Urine Color YELLOW Urine Appearance MODERATELY TURBID Urine pH 5.0 (5.0-7.5) Ur Specific [place] 1.019 (1.002-1.030) Urine Protein NEGATIVE (NEGATIVE) Urine Ketones 1+ H (NEGATIVE) Urine Blood 1+ H (NEGATIVE) Urine Nitrate NEGATIVE (NEGATIVE) Urine Bilirubin NEGATIVE (NEGATIVE) Urine Urobilinogen NEGATIVE EU EU (0.2-1.0) Ur Leukocyte Esterase 3+ H (NEGATIVE) Urine RBC 25-50 /hpf H /hpf (0-3) Urine WBC 50-182 /hpf H /hpf (0-3) Ur Epithelial Cells 1+ /lpf /lpf (NONE-1+) Urine Mucus 1+ /lpf /lpf (NONE-1+) Urine Glucose NEGATIVE (NEGATIVE) 10/18/17 10/18/17 15:30 15:30 WBC 8.92 10^3/uL 10^3/uL (3.80-9.50) RBC 4.69 10^6/uL 10^6/uL (4.18-5.33) Hgb 14.7 g/dL g/dL (12.6-16.3) Hct 43.3 % % (38.0-47.0) MCV 92.3 fL fL (81.5-99.8) MCH 31.3 pg pg (27.9-34.1) MCHC 33.9 g/dL g/dL (32.4-36.7) RDW 13.2 % % (11.5-15.2) Plt Count 256 10^3/uL 10^3/uL (150-400) MPV 9.9 fL fL (8.7-11.7) Neut % (Auto) 80.9 % H % (39.3-74.2) Lymph % (Auto) 10.4 % L % (15.0-45.0) [place] % (Auto) 6.3 % % (4.5-13.0) Eos % (Auto) 1.7 % % (0.6-7.6) Baso % (Auto) 0.4 % % (0.3-1.7) Nucleat RBC Rel Count 0.0 % % (0.0-0.2) Absolute Neuts (auto) 7.21 10^3/uL H 10^3/uL (1.70-6.50) Absolute Lymphs (auto) 0.93 10^3/uL L 10^3/uL (1.00-3.00) Absolute Monos (auto) 0.56 10^3/uL 10^3/uL (0.30-0.80) Absolute Eos (auto) 0.15 10^3/uL 10^3/uL (0.03-0.40) Absolute Basos (auto) 0.04 10^3/uL 10^3/uL (0.02-0.10) Absolute Nucleated RBC 0.00 10^3/uL 10^3/uL (0-0.01) Immature Gran % 0.3 % % (0.0-1.1) Immature Gran # 0.03 10^3/uL 10^3/uL (0.00-0.10) PT INR APTT VBG Lactic Acid 1.3 mmol/L mmol/L (0.7-2.1) Sodium Potassium Chloride Carbon Dioxide Anion Gap BUN Creatinine Estimated GFR Glucose Calcium Total Bilirubin Urine Color Urine Appearance Urine pH Ur Specific [place] Urine Protein Urine Ketones Urine Blood Urine Nitrate Urine Bilirubin Urine Urobilinogen Ur Leukocyte Esterase Urine RBC Urine WBC Ur Epithelial Cells Urine Mucus Urine Glucose Microbiology Results: MICROBIOLOGY 10/18/17 15:30 Nasal, Sinus - Swab Respiratory Panel (PCR) - Final Human Metapneumovirus Detected Medications Given: Albuterol/Ipratropium (Duoneb) 3 ml IH Q6HRS CARLOS Stop: 04/16/18 18:46 Last Admin: 10/18/17 19:47 Dose: 3 ml Guaifenesin (Mucinex) 600 mg PO BID CARLOS Stop: 04/16/18 20:59 Last Admin: 10/18/17 20:21 Dose: 600 mg Sodium Chloride (Ns) 1,000 mls @ 100 mls/hr IV CONT CARLOS Stop: 04/16/18 16:29 Last Admin: 10/18/17 19:10 Dose: 1,000 mls Prednisone (Prednisone) 40 mg PO DAILY CARLOS Stop: 04/16/18 18:59 Last Admin: 10/18/17 20:26 Dose: 40 mg Venlafaxine HCl (Effexor Xr) 75 mg PO BID CARLOS Stop: 04/16/18 20:59 Last Admin: 10/18/17 20:21 Dose: 75 mg Discontinued Medications Acetaminophen (Tylenol) 650 mg PO EDNOW ONE Stop: 10/18/17 15:32 Last Admin: 10/18/17 15:51 Dose: 650 mg Albuterol/Ipratropium (Duoneb) 3 ml IH EDNOW ONE Stop: 10/18/17 15:32 Last Admin: 10/18/17 15:51 Dose: 3 ml Sodium Chloride (Ns) 500 mls @ 1,000 mls/hr IV EDNOW ONE PRN Reason: Protocol Stop: 10/18/17 15:59 Last Admin: 10/18/17 15:49 Dose: 500 mls Ceftriaxone Sodium/Dextrose (Rocephin 1 Gm (Premix)) 50 mls @ 100 mls/hr IV EDNOW ONE PRN Reason: Protocol Stop: 10/18/17 16:48 Last Admin: 10/18/17 16:37 Dose: 50 mls Azithromycin 500 mg/ Sodium (Chloride) 255 mls @ 255 mls/hr IV EDNOW ONE PRN Reason: Protocol Stop: 10/18/17 17:19 Last Admin: 10/18/17 17:17 Dose: 255 mls Methylprednisolone Sodium Succinate (Solu-Medrol) 125 mg IVP EDNOW ONE Stop: 10/18/17 15:32 Last Admin: 10/18/17 15:50 Dose: 125 mg Departure - Departure Disposition: [facility] Inpatient Acute Clinical Impression: Pneumonia Qualifiers: Pneumonia type: due to unspecified organism Laterality: right Lung location: lower lobe of lung Qualified Code(s): J18.1 - Lobar pneumonia, unspecified organism Condition: Fair
[2017-10-18] MEDS ORDERED: IPRATROPIUM/ALBUTEROL 3 ML DEYVIAL IH ONE (15:31)
[2017-10-18] MEDS ORDERED: methylPREDNISolone SOD SUCC 125 MG/2 ML VIAL IVP ONE (15:31)
[2017-10-18] MEDS ORDERED: ACETAMINOPHEN 325 MG TAB PO ONE (15:31)
[2017-10-18 15:59] LABS: PLATELET COUNT 256 10^3/uL (150-400)
[2017-10-18 16:11] LABS: INR 0.96 (0.83-1.16)
[2017-10-18] MEDS ORDERED: AZITHROMYCIN IV 500 MG in NS 250 ML IV ONE (16:20)
[2017-10-18] MEDS ORDERED: ONDANSETRON 4 MG/2 ML VIAL IVP PRN (16:24)
[2017-10-18] MEDS ORDERED: ONDANSETRON DISINTEGRATING 4 MG TAB PO PRN (16:24)
[2017-10-18] MEDS ORDERED: guaiFENesin/CODEINE PHOS 10 ML UDCUP PO PRN (16:29)
--- NOTE | 2017-10-18 16:45 | CPEKG ---
Heart Rate: 105 RR Interval: 571 P-R Interval: 192 QRSD Interval: 90 QT Interval: 332 QTC Interval: 439 P [place]: 67 QRS [place]: -30 T Wave [place]: 39 EKG Severity - OTHERWISE NORMAL ECG - EKG Impression: SINUS TACHYCARDIA EKG Impression: LEFT AXIS DEVIATION Electronically Signed By: Alma Keen 18-Oct-2017 23:02:58
--- NOTE | 2017-10-18 18:51 | PDGENHP ---
History and Physical - Chief Complaint Acute cough - History of Present Illness Primary care provider: Dr. Betsy Villatoro Primary intertype operator: Dr. Mauricio Wells HPI: 87-year-old female presenting with acute cough characterized as productive with associated subjective fever, anorexia, generalized weakness. She reports that the symptoms of cough had an onset of approximately 5 days ago and duration has been persistent thereafter. The cough has been somewhat alleviated and loosened up with use of her 's nebulizer treatments at home. That being said, on the day of presentation, the patient experienced a subjective fever as well as worsening generalized weakness and her daughter did not feel like the patient could wait for her primary care provider appointment tomorrow, and her daughter brought her to the emergency department. Of note, the patient's has been experiencing very similar symptoms at their assisted living facility. History Information - Allergies/Home Medication List Allergies/Adverse Reactions: Penicillins Allergy (Intermediate, Verified 10/18/17 14:59) Rash procaine Allergy (Intermediate, Verified 10/18/17 17:40) Itching NOVACAINE Allergy (Severe, Uncoded 10/18/17 17:40) Itching Home Medications: Venlafaxine Xr [Effexor Xr 75MG (*)] 75 mg PO BID 06/07/17 [Last Taken 10/17/17] Albuterol [Proventil Neb] 3 ml IH BID 10/18/17 [Last Taken 10/17/17] Ascorbic Acid [Vitamin C 500 mg (*)] 1,000 mg PO DAILY 10/18/17 [Last Taken ] Cholecalciferol Vit D3 [Vitamin D3 (*)] 1,000 units PO DAILY 10/18/17 [Last Taken 10/17/17] Cyanocobalamin [Vitamin B12 (*)] 1,000 mcg PO DAILY 10/18/17 [Last Taken ] Fluticasone Nasal [Flonase Nasal [place] (RX)] 2 sprays NASAL DAILY PRN 10/18/17 [ Last Taken Unknown] Multivitamins [Multivitamin (*)] 1 each PO DAILY 10/18/17 [Last Taken 10/17/17] Omeprazole 40 mg PO DAILY 10/18/17 [Last Taken 10/17/17] guaiFENesin [Mucinex 600 MG (*)] 600 mg PO DAILY 10/18/17 [Last Taken 10/17/17] I have personally reviewed and updated: family history, medical history, social history, surgical history - Past Medical History Additional medical history: Reported bronchitis and pulmonary granuloma, unclear whether she has a chronic obstructive pulmonary diagnosis - Surgical History Additional surgical history: Meniscal surgery, trigger finger - Family History Additional family history: with recent upper respiratory infection, sibling with breast cancer, sibling bladder cancer, daughter with small cell carcinoma - Social History Smoking Status: Never smoked Alcohol Use: Occasionally Drug Use: None Additional social history: Resides at [facility] with her , provides most of the care for him Review of Systems Review of Systems: ROS: 10pt was reviewed & negative except for what was stated in HPI & below Constitutional: Reports: fever, malaise, weakness Respiratory: Reports: cough Physical Exam Physical Exam: Temp Pulse Resp BP Pulse Ox 37.1 C 101 H 20 130/65 H 94 10/18/17 17:32 10/18/17 17:32 10/18/17 17:32 10/18/17 17:32 10/18/17 17:32 O2 (L/minute) 4 Constitutional: no apparent distress, appears nourished, not in pain, uncomfortable Eyes: PERRL, anicteric sclera, EOMI, scleral injection Ears, Nose, Mouth, Throat: moist mucous membranes, hearing normal, ears appear normal, no oral mucosal ulcers Cardiovascular: tachycardia, No systolic murmur, No irregularly irregular, No edema Respiratory: reduced air movement (On expiration bilaterally), expiratory wheeze , bronchial breath sounds, other (Cough triggered by deep inspiration), No inspiratory crackles Gastrointestinal: normoactive bowel sounds, soft, non-tender abdomen, no palpable masses, No distension Skin: warm, No rash Neurologic: AAOx3, sensation intact bilaterally, No weakness Psychiatric: interacting appropriately, not anxious, not encephalopathic, thought process linear Lymph, Heme, Immunologic: other (Palpable, nontender 2cm bilateral submandibular lymph nodes, no posterior cervical lymph nodes) Lab Data & Imaging Review 10/18/17 15:30 10/18/17 15:30 WBC 8.92 10^3/uL (3.80-9.50) 10/18/17 15:30 RBC 4.69 10^6/uL (4.18-5.33) 10/18/17 15:30 Hgb 14.7 g/dL (12.6-16.3) 10/18/17 15:30 Hct 43.3 % (38.0-47.0) 10/18/17 15:30 MCV 92.3 fL (81.5-99.8) 10/18/17 15:30 MCH 31.3 pg (27.9-34.1) 10/18/17 15:30 MCHC 33.9 g/dL (32.4-36.7) 10/18/17 15:30 RDW 13.2 % (11.5-15.2) 10/18/17 15:30 Plt Count 256 10^3/uL (150-400) 10/18/17 15:30 MPV 9.9 fL (8.7-11.7) 10/18/17 15:30 Neut % (Auto) 80.9 % (39.3-74.2) H 10/18/17 15:30 Lymph % (Auto) 10.4 % (15.0-45.0) L 10/18/17 15:30 [place] % (Auto) 6.3 % (4.5-13.0) 10/18/17 15:30 Eos % (Auto) 1.7 % (0.6-7.6) 10/18/17 15:30 Baso % (Auto) 0.4 % (0.3-1.7) 10/18/17 15:30 Nucleat RBC Rel Count 0.0 % (0.0-0.2) 10/18/17 15:30 Absolute Neuts (auto) 7.21 10^3/uL (1.70-6.50) H 10/18/17 15:30 Absolute Lymphs (auto) 0.93 10^3/uL (1.00-3.00) L 10/18/17 15:30 Absolute Monos (auto) 0.56 10^3/uL (0.30-0.80) 10/18/17 15:30 Absolute Eos (auto) 0.15 10^3/uL (0.03-0.40) 10/18/17 15:30 Absolute Basos (auto) 0.04 10^3/uL (0.02-0.10) 10/18/17 15:30 Absolute Nucleated RBC 0.00 10^3/uL (0-0.01) 10/18/17 15:30 Immature Gran % 0.3 % (0.0-1.1) 10/18/17 15:30 Immature Gran # 0.03 10^3/uL (0.00-0.10) 10/18/17 15:30 PT 13.0 SEC (12.0-15.0) 10/18/17 15:30 INR 0.96 (0.83-1.16) 10/18/17 15:30 APTT 30.7 SEC (23.0-38.0) 10/18/17 15:30 VBG Lactic Acid 1.3 mmol/L (0.7-2.1) 10/18/17 15:30 Sodium 137 mEq/L (135-145) 10/18/17 15:30 Potassium 4.4 mEq/L (3.3-5.0) 10/18/17 15:30 Chloride 100 mEq/L (97-110) 10/18/17 15:30 Carbon Dioxide 23 mEq/l (22-31) 10/18/17 15:30 Anion Gap 14 mEq/L (8-16) 10/18/17 15:30 BUN 10 mg/dL (7-23) 10/18/17 15:30 Creatinine 0.9 mg/dL (0.6-1.0) 10/18/17 15:30 Estimated GFR 59 10/18/17 15:30 Glucose 105 mg/dL (70-100) H 10/18/17 15:30 Calcium 9.1 mg/dL (8.5-10.4) 10/18/17 15:30 Total Bilirubin 0.6 mg/dL (0.1-1.4) 10/18/17 15:30 Urine Color YELLOW 10/18/17 15:45 Urine Appearance MODERATELY TURBID 10/18/17 15:45 Urine pH 5.0 (5.0-7.5) 10/18/17 15:45 Ur Specific [place] 1.019 (1.002-1.030) 10/18/17 15:45 Urine Protein NEGATIVE (NEGATIVE) 10/18/17 15:45 Urine Ketones 1+ (NEGATIVE) H 10/18/17 15:45 Urine Blood 1+ (NEGATIVE) H 10/18/17 15:45 Urine Nitrate NEGATIVE (NEGATIVE) 10/18/17 15:45 Urine Bilirubin NEGATIVE (NEGATIVE) 10/18/17 15:45 Urine Urobilinogen NEGATIVE EU (0.2-1.0) 10/18/17 15:45 Ur Leukocyte Esterase 3+ (NEGATIVE) H 10/18/17 15:45 Urine RBC 25-50 /hpf (0-3) H 10/18/17 15:45 Urine WBC 50-182 /hpf (0-3) H 10/18/17 15:45 Ur Epithelial Cells 1+ /lpf (NONE-1+) 10/18/17 15:45 Urine Mucus 1+ /lpf (NONE-1+) 10/18/17 15:45 Urine Glucose NEGATIVE (NEGATIVE) 10/18/17 15:45 Visualized and Interpreted Chest x-ray results: Yes Chest X-Ray results: other (Possible right lower lobe infiltrate) Visualized and Interpreted EKG results: Yes EKG Interpretation: Positive for: other (Sinus tachycardia) Assessment & Plan Assessment: 87-year-old female presents with acute reactive airway exacerbation in the setting of acute viral syndrome by metapneumovirus Plan: 1. Acute reactive airway exacerbation. New problem this provider, further workup indicated. Evidenced by bilateral expiratory wheezes, bronchial breath sounds, reduced expiratory air movement as well as significant cough triggered with any air movement comma most likely provoked by human metapneumovirus -reviewed outside records including 06/09/2017 discharge summary by Yana Jansen, patient had a presentation consistent with bronchitis that responded to steroids, Rhondasalon Perles, she received outpatient follow-up with Dr. Wells thereafter -obtain outside records from Dr. Wells is office to determine whether the patient has an underlying chronic obstructive pulmonary disease -chest CT from 09/21/2017 demonstrates no significant chronic airspace disease -placed on scheduled duo nebs, provide prednisone 40 mg starting now -check sputum culture, procalcitonin to determine whether this is purely secondary to a viral precipitant versus bacterial -supportive care with Mucinex, guaifenesin codeine, Tessalon Perles 2. Viral syndrome. Secondary to human metapneumovirus on respiratory viral panel, presentation seems very consistent with this as the underlying cause -discussed with Dr. Alma Keen in the emergency department, she reports to me the patient has received IV antibiotics on presentation, I have decided to hold further antibiotics given that this is most likely a viral caused presentation, but will check procalcitonin level as outlined above -get physical and occupational therapy, as the patient will most likely have home care needs at time of discharge Diet. Regular Prophylaxis. High risk patient, Lovenox for Code. Full per patient, daughter is MD RODGERS Disposition. Anticipated discharge is uncertain this time, anticipated length stay is greater than 48 hr for reasonable medical necessity including acute reactive airway exacerbation and high risk viral syndrome 2/2 human metapneumovirus which is currently caring a high risk of worsening morbidity and /or mortality in the elderly population.
[2017-10-18] MEDS ORDERED: ALBUTEROL 3 ML DEYVIAL IH PRN (18:56)
[2017-10-18] MEDS ORDERED: FLUTICASONE NASAL 120 SPRAYS/16 GM MDI EACHNARE PRN (18:56)
[2017-10-18] MEDS: NS 1,000 ML IV SCH (19:10)
[2017-10-18] MEDS: IPRATROPIUM/ALBUTEROL 3 ML DEYVIAL IH SCH ×2 (19:47→23:49)
[2017-10-18] MEDS: guaiFENesin 600 MG TAB.ER PO SCH (20:21)
[2017-10-18] MEDS: VENLAFAXINE XR 75 MG CAP PO SCH (20:21)
[2017-10-18] MEDS: predniSONE 20 MG TAB PO SCH (20:26)
[2017-10-18] MEDS ORDERED: guaiFENesin 600 MG TAB.ER PO SCH (21:00)
[2017-10-19] MEDS: NS 1,000 ML IV SCH (04:29)
[2017-10-19] MEDS: IPRATROPIUM/ALBUTEROL 3 ML DEYVIAL IH SCH ×4 (05:50→21:01)
[2017-10-19 05:56] LABS: PLATELET COUNT 234 10^3/uL (150-400)
[2017-10-19] MEDS: BENZONATATE 100 MG CAP PO PRN (06:05)
[2017-10-19] MEDS: PANTOPRAZOLE SODIUM 40 MG TAB PO SCH (08:13)
[2017-10-19] MEDS: ENOXAPARIN 40 MG/0.4 ML SYR SC SCH (08:14)
[2017-10-19] MEDS: guaiFENesin 600 MG TAB.ER PO SCH ×2 (08:14→20:35)
[2017-10-19] MEDS: CYANO/VITAMIN B12 1000 MCG TAB PO SCH (08:14)
[2017-10-19] MEDS: MULTIVITAMINS 1 EACH TAB PO SCH (08:14)
[2017-10-19] MEDS: ASCORBIC ACID 500 MG TAB PO SCH (08:14)
[2017-10-19] MEDS: CHOLECALCIFEROL VIT D3 1,000 UNITS TAB PO SCH (08:14)
[2017-10-19] MEDS: predniSONE 20 MG TAB PO SCH (08:14)
[2017-10-19] MEDS: VENLAFAXINE XR 75 MG CAP PO SCH ×2 (08:14→20:35)
--- NOTE | 2017-10-19 09:52 | ASMTCASEMG ---
Living Arrangements What is your living Answers: With Spouse arrangement? Who do you live with? Type Of Residence What kind of residence do Answers: Long-Term you live in? Type of Residence Facility Name Notes: [facility] Discharge Plan Comments Coordination Status Comments Notes: Pt is a 87 y/o female admitted for pneumonia. CM spoke w/ Rossana with [facility] and pt is not current w/ migel. Therapies have been ordered and awaiting recommendations. Needs are TBD at this time. CM to follow. Plan: TBD Date Signed: 10/19/2017 09:52 AM Electronically Signed By:JAMES Smiley
[2017-10-19] MEDS: ACETAMINOPHEN 325 MG TAB PO PRN ×2 (10:34→20:43)
--- NOTE | 2017-10-19 10:48 | PDMN ---
Medical Necessity Medical necessity: Pt meets IP criteria per MD; est los >2 mn for eval/tx of acute reactive airway exacerbation & high risk viral syndrome secondary to metapneumovirus w/worsening generalized weakness; pt is elderly & at high risk of worsening morbidity/mortality; admit for further workup/monitoring, IVFs, respiratory supportive care & therapies; hx bronchitis & pulmonary granuloma; per H&P & order 10/18/17
--- NOTE | 2017-10-19 13:47 | HOSPPROG ---
Hospitalist Progress Note Assessment/Plan: Alis Smith is an 87 y/o female came to the ER with c/o cough, subjective fever, anorexia and generalized weakness. Today is my first encounter w the patient, chart reviewed. 87-year-old female presents with acute reactive airway exacerbation in the setting of acute viral syndrome by * Acute reactive airway exacerbation -exacerbated by the metapneumovirus -steroids, duonebs, Mucinex, guaifenesin codeine, Tessalon Perles -procalcitonin is low, will not treat w antibiotics * Viral syndrome. Secondary to human metapneumovirus on respiratory viral panel *mild hyperkalemia -recheck in the morning *hyperglycemia -steroid induced *acute hypoxemia -had been requiring 4 liters of oxygen, now down to one *pyuria -urine cx pending *depression -home med resumed -stable *Plan: monitor her overnight, her has been ill recently Subjective: Alis is feeling much better today. She is still tired, but having less coughing Objective: Vital Signs Temp Pulse Resp BP Pulse Ox 36.7 C 86 14 133/74 H 94 10/19/17 11:36 10/19/17 11:41 10/19/17 11:41 10/19/17 11:36 10/19/17 11:41 Microbiology 10/18/17 19:48 - Final Sputum, Expectorated Laboratory Results 10/19/17 04:33 10/19/17 04:33 10/18/17 10/19/17 10/20/17 05:59 05:59 05:59 Intake Total 900 2407 Output Total 800 250 Balance 100 2157 PT 13.0 SEC (12.0-15.0) 10/18/17 15:30 INR 0.96 (0.83-1.16) 10/18/17 15:30 - Physical Exam Constitutional: no apparent distress, appears nourished, not in pain Eyes: PERRL Ears, Nose, Mouth, Throat: hearing normal Cardiovascular: regular rate and rhythym Respiratory: no respiratory distress, reduced air movement Skin: warm Neurologic: AAOx3 Psychiatric: interacting appropriately ICD10 Worksheet Patient Problems: Problems Problem Status Onset Pneumonia Acute chronic disease mgmt/transitional care Acute Bronchitis Acute Hypoxemia Acute
[2017-10-20] MEDS: BENZONATATE 100 MG CAP PO PRN ×3 (01:47→22:09)
[2017-10-20] MEDS: IPRATROPIUM/ALBUTEROL 3 ML DEYVIAL IH SCH ×4 (05:49→21:24)
[2017-10-20] MEDS: predniSONE 20 MG TAB PO SCH (09:26)
[2017-10-20] MEDS: CHOLECALCIFEROL VIT D3 1,000 UNITS TAB PO SCH (09:26)
[2017-10-20] MEDS: CYANO/VITAMIN B12 1000 MCG TAB PO SCH (09:27)
[2017-10-20] MEDS: PANTOPRAZOLE SODIUM 40 MG TAB PO SCH ×2 (09:27→19:43)
[2017-10-20] MEDS: VENLAFAXINE XR 75 MG CAP PO SCH ×2 (09:27→19:43)
[2017-10-20] MEDS: MULTIVITAMINS 1 EACH TAB PO SCH (09:27)
[2017-10-20] MEDS: guaiFENesin 600 MG TAB.ER PO SCH ×2 (09:27→19:43)
[2017-10-20] MEDS: ASCORBIC ACID 500 MG TAB PO SCH (09:28)
[2017-10-20] MEDS: ENOXAPARIN 40 MG/0.4 ML SYR SC SCH (09:28)
--- NOTE | 2017-10-20 10:59 | ASMTCMCOM ---
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 Pt otherwise has been independent in her ADLs, she was cleared by PT/OT for home. She is normally on 2L O2 at baseline but right now on 4L. She has good support from local dtr. Anticipate pt natacha dc home with support of family when medically stable, CM available for any changes. DC Plan: Independent Date Signed: 10/20/2017 10:59 AM Electronically Signed By:Jenifer Kruse RN
[2017-10-20] MEDS: AZITHROMYCIN 250 MG TAB PO SCH (12:11)
--- NOTE | 2017-10-20 16:43 | HOSPPROG ---
Hospitalist Progress Note Assessment/Plan: Alis Smith is an 87 y/o female came to the ER with c/o cough, subjective fever, anorexia and generalized weakness. * Acute reactive airway exacerbation -exacerbated by the metapneumovirus -steroids, duonebs, Mucinex, guaifenesin codeine, Tessalon Perles -procalcitonin is low -patient feels poorly, has poor breath sounds, will add Azithromycin -she is concerned she has symptoms of 'valley fever'-was in [place] in April. Explained to her that 5 months later, likely not the cause. * Viral syndrome. Secondary to human metapneumovirus on respiratory viral panel *mild hyperkalemia -recheck *hyperglycemia -steroid induced *acute hypoxemia -had been requiring 4 liters of oxygen,on 1-2 liters today *pyuria -urine cx shows mixed hadley -likely has chronic colonization *depression -home med resumed -stable *Plan: continue current treatment, she also has hx of GERD which could be contributing to her symptoms; will add a PPI> Subjective: Alis said she feels poorly and feels weak. Objective: Vital Signs Temp Pulse Resp BP Pulse Ox 36.4 C 83 16 134/66 H 85 L 10/20/17 12:00 10/20/17 12:00 10/20/17 12:00 10/20/17 12:00 10/20/17 13:44 Microbiology 10/18/17 19:48 - Final Sputum, Expectorated Sputum Culture - Final Laboratory Results 10/19/17 04:33 10/19/17 04:33 10/19/17 10/20/17 10/21/17 05:59 05:59 05:59 Intake Total 900 3357 500 Output Total 800 450 Balance 100 2907 500 PT 13.0 SEC (12.0-15.0) 10/18/17 15:30 INR 0.96 (0.83-1.16) 10/18/17 15:30 - Physical Exam Constitutional: appears nourished, not in pain Eyes: PERRL Ears, Nose, Mouth, Throat: moist mucous membranes Cardiovascular: regular rate and rhythym Respiratory: no respiratory distress, rhonchi (at the bases, more in the right base) Gastrointestinal: normoactive bowel sounds Skin: warm Musculoskeletal: full muscle strength Neurologic: AAOx3 Psychiatric: interacting appropriately ICD10 Worksheet Patient Problems: Problems Problem Status Onset Pneumonia Acute chronic disease mgmt/transitional care Acute Bronchitis Acute Hypoxemia Acute
[2017-10-21] MEDS: IPRATROPIUM/ALBUTEROL 3 ML DEYVIAL IH SCH ×4 (06:31→21:40)
--- NOTE | 2017-10-21 07:48 | HOSPPROG ---
Hospitalist Progress Note Assessment/Plan: Alis Smith is an 87 y/o female came to the ER with c/o cough, subjective fever, anorexia and generalized weakness. 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 Watson, Priscilla and Epifanio (latter 2 outpatient evals). Chart reviewed. 1st encounter. * Acute reactive airway exacerbation -exacerbated by the metapneumovirus -steroids, duonebs, Mucinex, guaifenesin codeine, Tessalon Perles -procalcitonin is low -added Azithro -we discussed likely contagious 1-2 weeks after start of infectious symptoms ( now 8-9 days in) *cough - seen by Dr. Wells and had PFTs that show both obstruction and restriction -cough felt related to post nasal drip and GERD -started PPI -will add nasal saline * Viral syndrome. Secondary to human metapneumovirus on respiratory viral panel *mild hyperkalemia -resolved *hyperglycemia -steroid induced -improved today *chronic hypoxic resp failure -previously on O2 for exertion with which she was not always faithful in using *acute hypoxemia -had been requiring 4 liters of oxygen,on 2 liters today *pyuria -urine cx shows mixed hadley -likely has chronic colonization *depression -home med resumed -stable *ADD -unknown as patient still coughing/weak *Plan: continue current treatment, will add nasal saline Subjective: Feels weak. Cough less productive. Objective: Vital Signs Temp Pulse Resp BP Pulse Ox 98.2 F 90 20 148/74 H 93 10/21/17 04:00 10/21/17 06:30 10/21/17 06:30 10/21/17 04:00 10/21/17 06:30 Microbiology 10/18/17 19:48 - Final Sputum, Expectorated Sputum Culture - Final Laboratory Results 10/19/17 04:33 10/21/17 04:10 10/20/17 10/21/17 10/22/17 05:59 05:59 05:59 Intake Total 3357 875 Output Total 450 600 Balance 2907 275 PT 13.0 SEC (12.0-15.0) 10/18/17 15:30 INR 0.96 (0.83-1.16) 10/18/17 15:30 - Physical Exam Constitutional: no apparent distress, appears nourished Eyes: anicteric sclera Ears, Nose, Mouth, Throat: moist mucous membranes Cardiovascular: regular rate and rhythym, no murmur, rub, or gallop Respiratory: reduced air movement, expiratory wheeze, rhonchi Gastrointestinal: normoactive bowel sounds, soft, non-tender abdomen Genitourinary: no bladder fullness Skin: warm, normal color Neurologic: AAOx3 Psychiatric: interacting appropriately, not anxious ICD10 Worksheet Patient Problems: Problems Problem Status Onset Pneumonia Acute chronic disease mgmt/transitional care Acute Bronchitis Acute Hypoxemia Acute
[2017-10-21] MEDS: predniSONE 20 MG TAB PO SCH (08:39)
[2017-10-21] MEDS: CYANO/VITAMIN B12 1000 MCG TAB PO SCH (08:39)
[2017-10-21] MEDS: CHOLECALCIFEROL VIT D3 1,000 UNITS TAB PO SCH (08:39)
[2017-10-21] MEDS: VENLAFAXINE XR 75 MG CAP PO SCH ×2 (08:39→21:34)
[2017-10-21] MEDS: ASCORBIC ACID 500 MG TAB PO SCH (08:39)
[2017-10-21] MEDS: AZITHROMYCIN 250 MG TAB PO SCH (08:39)
[2017-10-21] MEDS: guaiFENesin 600 MG TAB.ER PO SCH ×2 (08:39→21:34)
[2017-10-21] MEDS: PANTOPRAZOLE SODIUM 40 MG TAB PO SCH ×2 (08:40→21:34)
[2017-10-21] MEDS: ENOXAPARIN 40 MG/0.4 ML SYR SC SCH (08:40)
[2017-10-21] MEDS: MULTIVITAMINS 1 EACH TAB PO SCH (08:40)
[2017-10-21] MEDS: BENZONATATE 100 MG CAP PO PRN ×2 (08:44→21:33)
[2017-10-21] MEDS ORDERED: SODIUM CL NASAL GEL 14.1 GM TUBE TP PRN (11:06)
[2017-10-22] MEDS: IPRATROPIUM/ALBUTEROL 3 ML DEYVIAL IH SCH ×2 (05:55→11:30)
[2017-10-22] MEDS: ENOXAPARIN 40 MG/0.4 ML SYR SC SCH (08:16)
[2017-10-22] MEDS: predniSONE 20 MG TAB PO SCH (08:17)
[2017-10-22] MEDS: CYANO/VITAMIN B12 1000 MCG TAB PO SCH (08:17)
[2017-10-22] MEDS: PANTOPRAZOLE SODIUM 40 MG TAB PO SCH (08:17)
[2017-10-22] MEDS: VENLAFAXINE XR 75 MG CAP PO SCH (08:17)
[2017-10-22] MEDS: ASCORBIC ACID 500 MG TAB PO SCH (08:17)
[2017-10-22] MEDS: CHOLECALCIFEROL VIT D3 1,000 UNITS TAB PO SCH (08:17)
[2017-10-22] MEDS: AZITHROMYCIN 250 MG TAB PO SCH (08:17)
[2017-10-22] MEDS: MULTIVITAMINS 1 EACH TAB PO SCH (08:17)
[2017-10-22] MEDS: guaiFENesin 600 MG TAB.ER PO SCH (08:17)
[2017-10-22] MEDS: BENZONATATE 100 MG CAP PO PRN (08:24)
[2017-10-22 09:12] VITALS: BP 142/74
--- NOTE | 2017-10-22 16:42 | GDS ---
[f rep st] DISCHARGE SUMMARY DISCHARGE DIAGNOSES: 1. Acute reactive airway exacerbation. 2. Metapneumovirus on respiratory event panel with a viral syndrome in this admission. 3. Acute hypoxemia on chronic hypoxemia. PROCEDURES: 10/18/2017: Chest x-ray, which showed peribronchial cuffing in the perihilar region cecilio aterally which can be seen with bronchitis. BRIEF HISTORY: Please see dictated H and P for complete details. In brief, the patient is an 87-yea r-old female with a history of chronic hypoxemia for which she uses oxygen on ambulation, depression, who presented with 5 days of worsening cough, subjective fevers, anorexia, and generalized weakness. She was noted to be hypoxic even at rest. She was treated with steroids, DuoNebs, guaifenesin with codeine, Tessalon Perles, and azithromycin with improvement to symptoms at the time of discharge. S he is being discharged to home with recommendations to follow up with her primary care physician as w ell as Dr. Wells in 1 week's time. PHYSICAL EXAMINATION: VITAL SIGNS: BP of 142/74, heart rate of 81, respirations 18, O2 saturation 9 4% on 2 L/min, temp of 97.9 degrees Fahrenheit. GENERAL: She is a pleasant female in no apparent dis tress. HEENT: Normocephalic, atraumatic. EYES: PERRL. HEART: Regular rate and rhythm. LUNGS: Mildly diminished without rhonchi or rales. RESULTS PENDING: None. DIET: Per previous. ACTIVITY: As tolerated. DISCHARGE MEDICATIONS: Please see med reconciliation for complete details. FOLLOWUP INSTRUCTIONS: 1. Follow up with Dr. Betsy Villatoro. 2. Follow up with Dr. Wells. /[id number]/MODL
== END 2017-10-22 15:17 | disposition home or self-care (01) | DRG 203 ==
LOC: F3E 17:41
PROVIDERS: ADMIT Internal Medicine; ATTEND Internal Medicine
DX: J45.901 Unspecified asthma with (acute) exacerbation (principal); B97.81 Human metapneumovirus as the cause of diseases classified elsewhere; E87.5 Hyperkalemia; R09.02 Hypoxemia; F32.9 Major depressive disorder, single episode, unspecified
CPT/HCPCS: 96374; 97116-GP; 97162-GP; 97165-GO; 97535-GO; G8978-GP-CK; G8979-GP-CI; G8987-GO-CI; G8988-GO-CH; J0456; J0696; J1650; J2930; J7512

== ENCOUNTER → 2018-01-30 | Outpatient (CLI) | payer OTHER, MEDICARE | LOC: FIMAGING 09:59 | PROVIDERS: ATTEND Internal Medicine | DX: Z12.31 Encounter for screening mammogram for malignant neoplasm of breast (principal); Z80.3 Family history of malignant neoplasm of breast ==

== ENCOUNTER → 2018-03-21 | Outpatient (CLI) | payer OTHER, MEDICARE | LOC: BMCIMAGING 12:12 → EDSTATUS 12:13 → BMCIMAGING 12:14 | PROVIDERS: ATTEND Orthopaedic Surgery Hand Surgery | DX: M25.512 Pain in left shoulder (principal) ==